=== PATIENT | male | born 1985 | race Caucasian/White ===

== ENCOUNTER 2023-11-21 08:40 | Emergency (ER) | payer MEDICARE, SELFPAY ==
[2023-11-21 09:00] VITALS: BP 139/82; PULSE 83; RESP 18; TEMP 36.8; O2SAT 100; BMI 23.2
[2023-11-21 09:03] VITALS: BP 139/82; PULSE 85; O2SAT 99
[2023-11-21 09:30] VITALS: BP 140/79; PULSE 82; O2SAT 100
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
--- NOTE | 2023-11-21 10:05 | EKG_ITS ---
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
[2023-11-21 10:26] LABS: Ur Creatinine Normal (Normal); Ur Specific Gravity Normal (Normal); Urine Amphetamines Negative (Negative); Urine Barbiturates Negative (Negative); Urine Benzodiazepines Negative (Negative); Urine Cocaine Negative (Negative); Urine MDMA Negative (Negative); Urine Methadone Negative (Negative); Urine Methamphetamines Negative (Negative); Urine Opiates Negative (Negative); Urine Oxycodone Negative (Negative); Urine Phencyclidine Negative (Negative); Urine THC Positive (Negative); Urine Tricyclic Antidepressant Negative (Negative); Urine pH Normal (Normal)
[2023-11-21 11:00] VITALS: BP 130/74; PULSE 68; RESP 16; O2SAT 99
[2023-11-21 11:06] LABS: Add Manual Diff / Slide Review NO; Basophils Absolute Auto 0 /uL (0-100); Basophils Percent Auto 0.4 % (0-2); Eosinophils Absolute Auto 100 /uL (0-450); Eosinophils Percent Auto 1.7 % (2-4); Hematocrit 43.8 % (41-53); Hemoglobin 15.1 g/dL (13.5-17.5); Lymphocytes Absolute Auto 2300 /uL (1100-4500); Lymphocytes Percent Auto 30.7 % (25-40); Mean Corpuscular HGB Conc 34.5 % (30-36); Mean Corpuscular Hemoglobin 29.3 PG (26-34); Mean Corpuscular Volume 85.2 fL (80-100); Monocytes Absolute Auto 500 /uL (0-900); Monocytes Percent Auto 6.7 % (3-14); Neutrophils Absolute Auto 4600 /uL (1500-7000); Neutrophils Percent Auto 60.5 % (50-75); Platelet Count 145 X10^3/uL (150-400); Red Blood Cell Count 5.14 X10^6/uL (4.5-5.9); Red Cell Distribution Width 15.2 % (11.6-14.8); White Blood Cell Count 7.6 X10^3/uL (4.5-11.0)
[2023-11-21 11:15] LABS: Alanine Aminotransferase 19 IU/L (<50); Albumin 4.4 g/dL (3.5-5.0); Albumin Globulin Ratio 1.5 (1.0-2.8); Alkaline Phosphatase 64 U/L (38-126); Aspartate Aminotransferase 23 IU/L (17-59); Bilirubin Total 0.7 mg/dL (0.2-1.3); Blood Urea Nitrogen 7 mg/dL (9-20); Carbon Dioxide 26 mmol/L (22-32); Chloride 106 mmol/L (98-107); Estimated Glomerular Filt Rate > 60 mL/min (>60); Ethanol (ETOH) < 10 mg/dL; Glucose 102 mg/dL (70-100); HEMOLYSIS < 15 (0-50); Sodium 140 mmol/L (137-145); Total Protein 7.4 g/dL (6.3-8.2)
[2023-11-21 12:22] LABS: TSH w/ Reflex to FT4 0.76 uIU/mL (0.47-4.68)
[2023-11-21 13:00] VITALS: BP 133/72; PULSE 64; RESP 16; O2SAT 99
[2023-11-21 14:49] LABS: COVID19 -Nasal RAPID Negative (Negative)
--- NOTE | 2023-11-21 15:30 | PC.NURSE ---
EXECUTIVE KITCHEN MANAGER NOTE: patient keeps asking about when he can be discharges, CHIEF TELEPHONE OPERATOR and RN made aware. Patient was made aware that we are waiting on one more assessment and patient was okay with that.
--- NOTE | 2023-11-21 16:50 | PC.NURSE ---
PLANNING MANAGEMENT IT SPECIALIST NOTE: Throughout patients visit to the ED he has remained on the phone talking with anyone he can get ahold of. The patient also stood in the door way and talked with me and SOLE LEATHER CUTTING MACHINE OPERATOR for roughly 45 mins. The patient was talking quickly and gave little time for any response from either one of us. The patient talked about grandiose stories and memories. The patient has been laying in the bed or standing during his visit.
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
--- NOTE | 2023-11-21 18:28 | PC.NURSE ---
ELECTRICAL ENGINEER MEP NOTE: DCR is in the room with the patient @[phone]
--- NOTE | 2023-11-21 18:47 | PC.NURSE ---
FORESTRY FIRE AID NOTE: patient was on the phone with someone and was yelling, unsure of what the patient was saying or upset about. The patient was also pacing in his room and back and forth to the bathroom. stating I just cant sit its making my eyes heavy and my food needs to digest.
--- NOTE | 2023-11-21 19:15 | PC.NURSE ---
patient completed DCR Eval and cleared by DCR Nicola and discharged from ER declines to wait for DC papers but spoke with RN and ER MD, patient instructed his RX was sent to [facility] for R chest redness and not to cut site, try to drain, or squeeze area. Patient declines DC vitals and walks out of ER speaking with loud voice.
--- NOTE | 2023-11-21 19:32 | CM.SWNOTE ---
ED BARREL HEADER Assessment Note: BARREL HEADER coordinated DCR dispatch, DCR Nicola arrived to at approximately 1800. DCR spoke with patient and completed assessment. Per DCR, pt does not meet criteria for detainment and patient can discharge home to aunt's home. DCR stated he will reach out to family for an update. DCR Briefing of Intervention Form placed in medical records. Plan: Patient discharged home, [facility] to follow up with patient tomorrow via phone. CARROLL Price
== END 2023-11-21 19:27 | disposition home or self-care (01) ==
PROVIDERS: Emergency Provider Emergency Medicine
DX: L03.313 Cellulitis of chest wall (principal); F31.9 Bipolar disorder, unspecified; Z11.52 Encounter for screening for COVID-19
CPT/HCPCS: 36415; 80053; 80305; 80320; 81003; 84443; 85025; 87635; 93005; 93010; 99284